=== PATIENT | male | born 1935 | race Caucasian/White ===

== ENCOUNTER 2020-02-14 12:48 | Inpatient (IN) | payer MEDICARE ==
[2020-02-14] MEDS ORDERED: SODIUM CHLORIDE 0.9% 500 ML 500 ML IV STA (13:33)
[2020-02-14 14:00] LABS: Basophils # (A) 0.1 k/uL (0-0.2); Basophils % (A) 1 %; Eosinophils # (A) 0.2 k/uL (0-0.7); Eosinophils % (A) 3 %; HCT 44.7 % (39.0-53.0); HGB 14.6 gm/dL (13.0-17.5); Lymphocytes # (A) 2.5 k/uL (1.0-4.8); Lymphocytes % (A) 26 %; MCH 27.9 pg (25.0-35.0); MCHC 32.6 g/dL (31.0-37.0); MCV 85.6 fL (80.0-100.0); Mean Platelet Volume 7.9; Monocytes # (A) 0.6 k/uL (0-1.0); Monocytes % (A) 6 %; Neutrophils # (A) 5.9 k/uL (1.3-7.7); Neutrophils % (A) 62 %; Platelet Count 213 k/uL (150-450); RBC 5.23 m/uL (4.30-5.90); RDW 14.1 % (11.5-15.5); WBC 9.6 k/uL (3.8-10.6)
[2020-02-14 14:08] LABS: Albumin 4.2 g/dL (3.5-5.0); Calcium 9.2 mg/dL (8.4-10.2); Potassium 4.9 mmol/L (3.5-5.1); Total Bilirubin 0.7 mg/dL (0.2-1.3); Total Protein 7.1 g/dL (6.3-8.2)
[2020-02-14 14:09] LABS: Partial Thromboplastin Time 23.5 sec (22.0-30.0); Prothrombin Time 10.2 sec (9.0-12.0)
--- NOTE | 2020-02-14 14:09 | ED ---
General Adult HPI - General Source: patient, RN notes reviewed, old records reviewed Mode of arrival: wheelchair Limitations: physical limitation <Usman Lange - Last Filed: 02/14/20 15:03> <Madonna Senior - Last Filed: 02/15/20 15:25> - General Chief complaint: Neuro Symptoms/Deficit Stated complaint: sent by pcp Time Seen by Provider: 02/14/20 13:00 - History of Present Illness Initial comments: This is an 84-year-old male who presents emergency Department stating since Friday he's had some right-sided coordination problems with both his arm and leg. Patient also states he's had slurred speech since then. Patient states he was working outside in the heat and thought maybe it was secondary to that but since his symptoms persisted all day Friday and today he decided to come in and be evaluated. Patient denies any headache patient denies lightheadedness or dizziness. Patient denies any blurred vision. Patient denies noting any facial drooping. Patient denies any recent fever chills or cough per patient denies any chest pain patient denies difficulty breathing shortness breath per patient denies any abdominal pain patient denies nausea vomiting diarrhea. Patient states he has had some difficulty walking because of the cord patient problems of his arm and leg. (Usman Lange) - Related Data Home Medications Medication Instructions Recorded Confirmed Atorvastatin Calcium [Lipitor] 40 mg PO HS 02/14/20 02/14/20 Glimepiride [Amaryl] 1 mg PO BID 02/14/20 02/14/20 Levothyroxine Sodium [Synthroid] 50 mcg PO QAM 02/14/20 02/14/20 Lisinopril [Zestril] 5 mg PO DAILY 02/14/20 02/14/20 Tamsulosin HCl [Flomax] 0.4 mg PO DAILY 02/14/20 02/14/20 Timolol 0.5% Ophth Gel Forming 1 drop BOTH EYES QAM 02/14/20 02/14/20 [Timoptic-Xe 0.5% Gel Form] amLODIPine [Norvasc] 5 mg PO DAILY 02/14/20 02/14/20 Previous Rx's Medication Instructions Recorded Aspirin 325 mg PO DAILY #30 tab 02/15/20 Allergies Allergy/AdvReac Type Severity Reaction Status Date / Time No Known Allergies Allergy Verified 02/14/20 16:58 Review of Systems ROS Other: All systems not noted in ROS Statement are negative. <Usman Lange - Last Filed: 02/14/20 15:03> ROS Other: All systems not noted in ROS Statement are negative. <Madonna Senior - Last Filed: 02/15/20 15:25> ROS Statement: Those systems with pertinent positive or pertinent negative responses have been documented in the HPI. Past Medical History Past Medical History: Diabetes Mellitus, Hyperlipidemia, Hypertension, Prostate Disorder, Thyroid Disorder Additional Past Medical History / Comment(s): glaucoma History of Any Multi-Drug Resistant Organisms: None Reported Past Surgical History: Orthopedic Surgery Additional Past Surgical History / Comment(s): carotidendarectomy, rt knee Past Psychological History: No Psychological Hx Reported Smoking Status: Former smoker Past Alcohol Use History: None Reported Past Drug Use History: None Reported <Usman Lange - Last Filed: 02/14/20 15:03> General Exam Limitations: physical limitation <Usman Lange - Last Filed: 02/14/20 15:03> - General Exam Comments Initial Comments: GENERAL: Patient is well-developed and well-nourished. Patient is nontoxic and well- hydrated and is in no acute distress. ENT: Neck is soft and supple. No significant lymphadenopathy is noted. Oropharynx is clear. Moist mucous membranes. Neck has full range of motion without eliciting any pain. EYES: The sclera were anicteric and conjunctiva were pink and moist. Extraocular movements were intact and pupils were equal round and reactive to light. Eyelids were unremarkable. PULMONARY: Unlabored respirations. Good breath sounds bilaterally. No audible rales rhon chi or wheezing was noted. CARDIOVASCULAR: There is a regular rate and rhythm without any murmurs gallops or rubs. ABDOMEN: Soft and nontender with normal bowel sounds. No palpable organomegaly was noted. There is no palpable pulsatile mass. SKIN: Skin is clear with no lesions or rashes and otherwise unremarkable. NEUROLOGIC: Patient is alert and oriented x3. Cranial nerves II through XII are grossly intact. Motor and sensory are also intact. Normal speech, volume and content. Symmetrical smile. Finger to nose testing was done and patient is slightly off with his right hand when compared to left. Patient also did heel to storey testing and they right side more difficult and was definitely off when compared to the left. MUSCULOSKELETAL: Normal extremities with adequate strength and full range of motion. No lower extremity swelling or edema. No calf tenderness. LYMPHATICS: No significant lymphadenopathy is noted PSYCHIATRIC: Normal psychiatric evaluation. (Usman Lange) Course Vital Signs 02/14/20 02/14/20 02/14/20 13:04 15:00 16:00 Temperature 98.2 F Pulse Rate 53 L 61 56 L Respiratory 18 16 Rate Blood Pressure 151/71 165/93 169/83 O2 Sat by Pulse 97 93 L 100 Oximetry 02/14/20 16:58 Temperature Pulse Rate 62 Respiratory 16 Rate Blood Pressure 165/84 O2 Sat by Pulse 100 Oximetry Medical Decision Making - Lab Data Result diagrams: 02/14/20 13:51 02/14/20 13:51 <Usman Lange - Last Filed: 02/14/20 15:03> - Lab Data Result diagrams: 02/14/20 13:51 02/14/20 13:51 <Madonna Senior - Last Filed: 02/15/20 15:25> - Medical Decision Making EKG shows sinus bradycardia 52 bpm MO interval is 170 QRS 104 QT interval is 440 QTC is 449. Patient's EKG shows no ST segment elevation or depression Dr. Wilcox be taking over the care of this patient at 3 PM (Usman Lange) I took over the patient's care at shift change. I did review his laboratory studies. CT of the patient's brain demonstrates mild generalized atrophy and m oderate chronic small vessel ischemic disease. 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 No acute intracranial abnormality seen. CT angiography of the patient's head demonstrates moderate atherosclerotic stenosis at the origin of the dominant left vertebral artery. Bilateral proximal ICA stents patent. Bovine configuration aortic arch. Nondominant right vertebral artery appears to terminate as a PICA branch. Persistent origin right MERCERIZING RANGE FEEDER. Hypoplastic A1 segment right GERALDINE. Moderate approaching 70% atherosclerotic stenosis involving clinoid segment of the left ICA. I discussed results with the patient and his family at bedside. I did recommend hospital admission for neurology evaluation for which the patient is family did agree. Patient will be admitted to [facility]. Discussed case with Dr. Porter who accepted admission. (Madonna Senior - Lab Data Lab Results 02/14/20 02/14/20 02/14/20 Range/Units 13:51 13:51 13:51 WBC 9.6 (3.8-10.6) k/uL RBC 5.23 (4.30-5.90) m/uL Hgb 14.6 (13.0-17.5) gm/dL Hct 44.7 (39.0-53.0) % MCV 85.6 (80.0-100.0) fL MCH 27.9 (25.0-35.0) pg MCHC 32.6 (31.0-37.0) g/dL RDW 14.1 (11.5-15.5) % Plt Count 213 (150-450) k/uL Neutrophils % 62 % Lymphocytes % 26 % Monocytes % 6 % Eosinophils % 3 % Basophils % 1 % Neutrophils # 5.9 (1.3-7.7) k/uL Lymphocytes # 2.5 (1.0-4.8) k/uL Monocytes # 0.6 (0-1.0) k/uL Eosinophils # 0.2 (0-0.7) k/uL Basophils # 0.1 (0-0.2) k/uL PT 10.2 (9.0-12.0) sec INR 1.0 (<1.2) APTT 23.5 (22.0-30.0) sec Sodium 135 L (137-145) mmol/L Potassium 4.9 (3.5-5.1) mmol/L Chloride 105 (98-107) mmol/L Carbon Dioxide 23 (22-30) mmol/L Anion Gap 7 mmol/L BUN 18 (9-20) mg/dL Creatinine 1.57 H (0.66-1.25) mg/dL Est GFR (CKD-EPI)AfAm 46 (>60 ml/min/1.73 sqM) Est GFR (CKD-EPI)NonAf 40 (>60 ml/min/1.73 sqM) Glucose 207 H (74-99) mg/dL Calcium 9.2 (8.4-10.2) mg/dL Total Bilirubin 0.7 (0.2-1.3) mg/dL AST 23 (17-59) U/L ALT 20 (4-49) U/L Alkaline Phosphatase 88 (38-126) U/L Troponin I (0.000-0.034) ng/mL Total Protein 7.1 (6.3-8.2) g/dL Albumin 4.2 (3.5-5.0) g/dL 02/14/20 Range/Units 13:51 WBC (3.8-10.6) k/uL RBC (4.30-5.90) m/uL Hgb (13.0-17.5) gm/dL Hct (39.0-53.0) % MCV (80.0-100.0) fL MCH (25.0-35.0) pg MCHC (31.0-37.0) g/dL RDW (11.5-15.5) % Plt Count (150-450) k/uL Neutrophils % % Lymphocytes % % Monocytes % % Eosinophils % % Basophils % % Neutrophils # (1.3-7.7) k/uL Lymphocytes # (1.0-4.8) k/uL Monocytes # (0-1.0) k/uL Eosinophils # (0-0.7) k/uL Basophils # (0-0.2) k/uL PT (9.0-12.0) sec INR (<1.2) APTT (22.0-30.0) sec Sodium (137-145) mmol/L Potassium (3.5-5.1) mmol/L Chloride (98-107) mmol/L Carbon Dioxide (22-30) mmol/L Anion Gap mmol/L BUN (9-20) mg/dL Creatinine (0.66-1.25) mg/dL Est GFR (CKD-EPI)AfAm (>60 ml/min/1.73 sqM) Est GFR (CKD-EPI)NonAf (>60 ml/min/1.73 sqM) Glucose (74-99) mg/dL Calcium (8.4-10.2) mg/dL Total Bilirubin (0.2-1.3) mg/dL AST (17-59) U/L ALT (4-49) U/L Alkaline Phosphatase (38-126) U/L Troponin I <0.012 (0.000-0.034) ng/mL Total Protein (6.3-8.2) g/dL Albumin (3.5-5.0) g/dL Disposition <Usman Lange - Last Filed: 02/14/20 15:03> Is patient prescribed a controlled substance at d/c from ED?: No Decision to Admit Reason: Admit from EC Decision Date: 02/14/20 Decision Time: 16:41 <Madonna Senior - Last Filed: 02/15/20 15:25> Clinical Impression: Cerebrovascular accident (CVA) Disposition: ADMITTED IP TO THIS HOSP Condition: Stable
--- NOTE | 2020-02-14 14:34 | XR ---
EXAMINATION TYPE: XR chest 2V DATE OF EXAM: 02/14/2020 COMPARISON: Prior chest x-ray is unavailable HISTORY: Altered mental status TECHNIQUE: Frontal and lateral views of the chest are obtained. FINDINGS: There is no focal air space opacity, pleural effusion, or pneumothorax seen. The cardiac silhouette size is within normal limits. The osseous structures are intact. The aorta is dense. IMPRESSION: No acute cardiopulmonary process.
--- NOTE | 2020-02-14 14:58 | CT ---
EXAMINATION TYPE: CT brain wo con for TPA DATE OF EXAM: 02/14/2020 COMPARISON: None HISTORY: 84-year-old male Right side weakness TECHNIQUE: Examination was done in axial plane without intravenous contrast. Coronal and sagittal r econstructions performed. CT DLP: 1187.8 mGycm Automated exposure control for dose reduction was used. FINDINGS: There is no evidence of acute intracranial hemorrhage, acute ischemic changes, mass, mass-effect, or extra-axial fluid collection. There is no effacement of cerebral sulci or basal subarachnoid cister ns. There is no hydrocephalus. There is no midline shift. Matthews-white matter distinction is preserv ed. Atherosclerotic calcifications in the carotid siphons. Mild to moderate generalized supratentorial vo lume loss. Old basal ganglionic lacunar infarcts on the right and also involving the left robledo radiata/deep wh ite matter on the left. Small air-fluid level right maxillary sinus. Mastoid air cells are pneumatized. Moderate to severe mu cosal thickening throughout the ethmoid air cells. IMPRESSION: 1. Mild generalized atrophy and moderate fatty change of chronic small vessel ischemic disease. Old r ight-sided basal ganglionic lacunar infarcts and deep white matter infarct left robledo radiata. 2. No acute intracranial abnormality seen. Follow-up CT or MRI if symptoms persist. 3. Moderate to severe chronic ethmoid sinus disease.
--- NOTE | 2020-02-14 15:57 | CT ---
EXAMINATION TYPE: CT angio head neck DATE OF EXAM: 02/14/2020 COMPARISON: Correlation brain same day HISTORY: 84-year-old male Right sided weakness TECHNIQUE: Contiguous axial scanning of the head and neck performed with IV Contrast, patient injecte d with 65 mL of Isovue 370. Coronal/sagittal MIP reconstructions performed. 3-D reconstructions gener ated on a dedicated workstation. CT DLP: 647.5 mGycm Automated exposure control for dose reduction was used. FINDINGS: NECK: Mild to moderate atherosclerotic arch calcifications. Bovine configuration to the aortic arch. Moderate atherosclerotic narrowing at the origin of the dominant left vertebral artery. The vertebral arteries are otherwise patent throughout the course. Right common carotid artery is patent. A proximal ICA stent is present on the right with patent ICA. Left common carotid artery is patent. Proximal left ICA stent is present and appears patent. HEAD: The nondominant right vertebral artery appears to terminate as a PICA branch. Left vertebral artery and basilar artery appear patent. Persistent origin right posterior cerebral artery.. Moderate atherosclerotic narrowing of greater than 50% of the clinoid segment left internal carotid a rtery. Mild atherosclerotic narrowing within the right carotid siphon. Hypoplastic A1 segment right anterior cerebral artery. The anterior circulation is otherwise patent. No aneurysmal changes identified. IMPRESSION: NECK: 1. Moderate atherosclerotic stenosis at the origin of the dominant left vertebral artery. 2. Bilateral proximal ICA stents appear patent. No hemodynamically significant ICA stenosis identifie d. 3. Bovine configuration to the aortic arch. HEAD: 4. The nondominant right vertebral artery appears to terminate as a PICA branch. 5. Persistent origin right GROUP TESTER. 6. Hypoplastic A1 segment right GERALDINE. 7. Moderate, approaching 70%, atherosclerotic stenosis involving the clinoid segment of the left ICA. Otherwise, mild atherosclerotic narrowing is present within the bilateral carotid siphons.
[2020-02-14] MEDS ORDERED: ASPIRIN 325 MG TAB PO STA (16:47)
[2020-02-14] MEDS: ATORVASTATIN 40 MG TAB PO SCH (17:36)
[2020-02-14 18:07] LABS: Glucose,Whole Blood 130 mg/dL (75-99)
[2020-02-14 20:16] LABS: Glucose,Whole Blood 220 mg/dL (75-99)
[2020-02-14] MEDS: GLIMEPIRIDE 1 MG TAB PO SCH (20:55)
[2020-02-15] MEDS: LEVOTHYROXINE 50 MCG TAB PO SCH (06:25)
[2020-02-15 06:51] LABS: Cholesterol 139 mg/dL (<200); HDL Cholesterol 29 mg/dL (40-60); LDL Cholesterol,Calculated 64 mg/dL (0-99); Triglycerides 232 mg/dL (<150)
[2020-02-15] MEDS ORDERED: amLODIPine 5 MG TAB PO SCH (09:00)
[2020-02-15] MEDS: GLIMEPIRIDE 1 MG TAB PO SCH ×2 (09:33→20:48)
[2020-02-15] MEDS: ASPIRIN 325 MG TAB PO SCH (09:33)
[2020-02-15] MEDS: TAMSULOSIN 0.4 MG CAP.ER.24H PO SCH (09:33)
[2020-02-15] MEDS: ATORVASTATIN 40 MG TAB PO SCH (09:34)
[2020-02-15] MEDS: TIMOLOL 0.5% OPHTH DROPS 5 ML BTL BOTH EYES SCH ×2 (09:35→20:48)
[2020-02-15] MEDS ORDERED: lisinopriL 5 MG TAB PO SCH (10:15)
[2020-02-15 12:09] LABS: Glucose,Whole Blood 217 mg/dL (75-99)
--- NOTE | 2020-02-15 12:57 | P.HPIM ---
History of Present Illness 83-year-old pleasant male given was department with complaints of weakness in the right arm and leg patient denied any significant speech abnormality facial droop patient denied any headache. Patient's EKG showed mild sinus bradycardia patient denied any fever chills nausea vomiting. Patient denied any tingling and numbness anywhere in the body. Patient the had a CT of the brain which did not show any acute stroke patient's symptoms has been going on since Friday. But patient has old a right-sided basal ganglionic lacunar infarcts and deep white matter infarcts were coronary radiate patient appears to have had old strokes. CT angios the head and neck did not show any significant occlusive disease patient will undergo MRI and an echocardiogram. Patient was already evaluated PT and OT they're not recommending any subacute rehabilitation. Speech therapy is evaluating the patient and neurology will evaluate the pat ient. Patient LDL is 64. Patient is a statin at home patient doesn't take any antiplatelet therapy at home patient was started on treatment for milligrams of aspirin patient probably will be discharged on 325 mg of aspirin. Review of Systems REVIEW OF SYSTEMS: CONSTITUTIONAL: No fever, no malaise, no fatigue. HEENT: No recent visual problems or hearing problems. Denied any sore throat. CARDIOVASCULAR: No chest pain, orthopnea, PND, no palpitations, no syncope. PULMONARY: No shortness of breath, no cough, no hemoptysis. GASTROINTESTINAL: No diarrhea, no nausea, no vomiting, no abdominal pain. NEUROLOGICAL: No headaches. HEMATOLOGICAL: Denies any bleeding or petechiae. GENITOURINARY: Denies any burning micturition, frequency, or urgency. MUSCULOSKELETAL/RHEUMATOLOGICAL: Denies any joint pain, swelling, or any muscle pain. ENDOCRINE: Denies any polyuria or polydipsia. The rest of the 14-point review of systems is negative. Past Medical History Past Medical History: Diabetes Mellitus, Hyperlipidemia, Hypertension, Prostate Disorder, Thyroid Disorder Additional Past Medical History / Comment(s): glaucoma History of Any Multi-Drug Resistant Organisms: None Reported Past Surgical History: Orthopedic Surgery Additional Past Surgical History / Comment(s): bilateral carotidendarectomy, rt knee Past Psychological History: No Psychological Hx Reported Smoking Status: Former smoker Past Alcohol Use History: None Reported Past Drug Use History: None Reported Medications and Allergies Home Medications Medication Instructions Recorded Confirmed Type Atorvastatin Calcium [Lipitor] 40 mg PO HS 02/14/20 02/14/20 History Glimepiride [Amaryl] 1 mg PO BID 02/14/20 02/14/20 History Levothyroxine Sodium [Synthroid] 50 mcg PO QAM 02/14/20 02/14/20 History Lisinopril [Zestril] 5 mg PO DAILY 02/14/20 02/14/20 History Tamsulosin HCl [Flomax] 0.4 mg PO DAILY 02/14/20 02/14/20 History Timolol 0.5% Ophth Gel Forming 1 drop BOTH EYES QAM 02/14/20 02/14/20 History [Timoptic-Xe 0.5% Gel Form] amLODIPine [Norvasc] 5 mg PO DAILY 02/14/20 02/14/20 History Aspirin 325 mg PO DAILY #30 tab 02/15/20 Rx Allergies Allergy/AdvReac Type Severity Reaction Status Date / Time No Known Allergies Allergy Verified 02/14/20 16:58 Physical Exam Vitals: Vital Signs Temp Pulse Pulse Resp BP BP Pulse Ox 02/15/20 08:00 97.8 F 50 L 18 187/85 97 02/15/20 04:00 97.9 F 95 17 136/63 97 02/15/20 00:00 97.7 F 55 L 16 135/75 96 02/14/20 20:00 98.1 F 60 19 162/76 95 02/14/20 18:02 97.8 F 56 L 16 177/76 96 02/14/20 16:58 62 16 165/84 100 02/14/20 16:00 56 L 169/83 100 02/14/20 15:00 61 16 165/93 93 L 02/14/20 13:04 98.2 F 53 L 18 151/71 97 Intake and Output 02/14/20 02/15/20 02/15/20 22:59 06:59 14:59 Intake Total 0 120 Balance 0 120 Intake: Oral 0 120 Blood Product 0 Other: Voiding Method Toilet Toilet Toilet # Voids 1 2 0 Weight 99.79 kg 98 kg PHYSICAL EXAMINATION: GENERAL: The patient is alert and oriented x3, not in any acute distress. Well developed, well nourished. HEENT: Pupils are round and equally reacting to light. EOMI. No scleral icterus. No conjunctival pallor. Normocephalic, atraumatic. No pharyngeal erythema. No thyromegaly. CARDIOVASCULAR: S1 and S2 present. No murmurs, rubs, or gallops. PULMONARY: Chest is clear to auscultation, no wheezing or crackles. ABDOMEN: Soft, nontender, nondistended, normoactive bowel sounds. No palpable organomegaly. MUSCULOSKELETAL: No joint swelling or deformity. EXTREMITIES: No cyanosis, clubbing, or pedal edema. NEUROLOGICAL: Patient has good strength in all 4 extremities about 5/5 is mild drift in the right arm SKIN: No rashes. Results CBC & Chem 7: 02/14/20 13:51 02/14/20 13:51 Labs: Abnormal Lab Results - Last 24 Hours (Table) 02/14/20 02/14/20 02/14/20 Range/Units 13:51 18:05 20:06 Sodium 135 L (137-145) mmol/L Creatinine 1.57 H (0.66-1.25) mg/dL Glucose 207 H (74-99) mg/dL POC Glucose (mg/dL) 130 H 220 H (75-99) mg/dL Triglycerides (<150) mg/dL HDL Cholesterol (40-60) mg/dL 02/15/20 02/15/20 Range/Units 05:35 11:53 Sodium (137-145) mmol/L Creatinine (0.66-1.25) mg/dL Glucose (74-99) mg/dL POC Glucose (mg/dL) 217 H (75-99) mg/dL Triglycerides 232 H (<150) mg/dL HDL Cholesterol 29 L (40-60) mg/dL Thrombosis Risk Factor Assmnt - Choose All That Apply Any of the Below Risk Factors Present?: No Other Risk Factors: No Each Risk Factor Represents 3 Points: Age 75 years or older Other congenital or acquired thrombophilia - If yes, enter type in comment: Yes Each Risk Factor Represents 5 Points: Stroke (< 1 month) Thrombosis Risk Factor Assessment Total Risk Factor Score: 8 Thrombosis Risk Factor Assessment Level: High Risk Assessment and Plan Plan: -Possible cerebrovascular accident involving the left side of the brain middle cerebral artery her treating. Patient was started on a statin further workup as mentioned above. Patient probably will be discharged on 325 of Aspirin patient already sticks statin at home. 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
--- NOTE | 2020-02-15 12:57 | P.DS ---
Providers Date of admission: 02/14/20 16:56 Attending physician: Tyler Orellana Consults: 02/14/20 16:43 Consult Physician Urgent Consulting Provider: Elie Brandon Consult Reason/Comments: acute ataxia, suspected CVA Do you want consulting provider notified?: Yes Primary care physician: Deondre Liu Hospital Course: Please refer to my HPI for further details Patient Condition at Discharge: Stable Plan - Discharge Summary Discharge Rx Participant: No New Discharge Prescriptions: New Aspirin 325 mg PO DAILY #30 tab Continue amLODIPine [Norvasc] 5 mg PO DAILY Tamsulosin HCl [Flomax] 0.4 mg PO DAILY Lisinopril [Zestril] 5 mg PO DAILY Levothyroxine Sodium [Synthroid] 50 mcg PO QAM Glimepiride [Amaryl] 1 mg PO BID Atorvastatin Calcium [Lipitor] 40 mg PO HS Timolol 0.5% Ophth Gel Forming [Timoptic-Xe 0.5% Gel Form] 1 drop BOTH EYES QAM Discharge Medication List Atorvastatin Calcium [Lipitor] 40 mg PO HS 02/14/20 [History] Glimepiride [Amaryl] 1 mg PO BID 02/14/20 [History] Levothyroxine Sodium [Synthroid] 50 mcg PO QAM 02/14/20 [History] Lisinopril [Zestril] 5 mg PO DAILY 02/14/20 [History] Tamsulosin HCl [Flomax] 0.4 mg PO DAILY 02/14/20 [History] Timolol 0.5% Ophth Gel Forming [Timoptic-Xe 0.5% Gel Form] 1 drop BOTH EYES QAM 02/14/20 [History] amLODIPine [Norvasc] 5 mg PO DAILY 02/14/20 [History] Aspirin 325 mg PO DAILY #30 tab 02/15/20 [Rx] Follow up Appointment(s)/Referral(s): Deondre Liu MD [Primary Care Provider] - 3 Days
--- NOTE | 2020-02-15 15:03 | P.CNNES ---
History of Present Illness Consult date: 02/15/20 Requesting physician: Madonna Senior Reason for Consult: Acute ataxia, suspected CVA History of Present Illness: Patient is a 84-year-old male, who came to the hospital for possible stroke. Patient states that over the weekend on Friday and Friday he worked in the yard. He became exhausted. Friday morning, he woke up and noticed some right- sided weakness, slurred speech and trouble with walking. He had a right facial droop. He stayed home. As symptoms persisted, he decided to come to the ER, and arrived yesterday at 1 PM (> 24 hours after onset of symptoms). Patient's blood pressure on arrival was 151/71, pulse rate 53, temperature 98.2. Patient underwent CT head showed mild generalized atrophy and moderate fatty change of chronic small vessel ischemic disease. Old right sided basal ganglionic lacunar infarcts and deep white matter infarct left robledo radiate up. No acute intracranial process. Moderate to severe chronic ethmoid sinus disease. CTA of head showed nondominant right vertebral artery appears to terminate as a PICA branch. Persistent origin right ICA. Hypoplastic A1 segment right GERALDINE. Moderate approaching 70% atherosclerotic stenosis involving the clinoid segment of the left ICA. Otherwise mild atherosclerotic narrowing is present within the bilateral carotid siphons. CTA of the neck showed moderate atherosclerotic stenosis at the origin of dominant left vertebral artery. Bilateral proximal ICA stents appear patent. No hemodynamically significant ICA stenosis identified. Bovine configuration to the aortic arch. EKG shows sinus bradycardia. Chest x-ray showed no acute cardiopulmonary process. Patient's blood test shows normal CBC, PT/PTT. Sodium 135, potassium is normal. BUN 18, creatinine 1.57. Hemoglobin A1c 10.7. Hepatic panel normal. Total cholesterol is 139, LDL 64, HDL 29 and triglycerides 232. Patient has history of diabetes and hypertension for a few years. He has hyperlipidemia. He has smoked 1-1/2 pack per day for 40 years, quit 20-25 years ago. No previous history of strokes. At home he was not taking any antiplatelet medication. He has been started on aspirin 325 mg daily. Review of Systems As above in detail. All other review of systems unremarkable. Denies headache and double vision loss of vision. Denies hoarseness. Complains of slurred speech. Gait problem. Patient does not use any device at baseline. He has been using cane since the symptoms started. Past Medical History Past Medical History: Diabetes Mellitus, Hyperlipidemia, Hypertension, Prostate Disorder, Thyroid Disorder Additional Past Medical History / Comment(s): glaucoma History of Any Multi-Drug Resistant Organisms: None Reported Past Surgical History: Orthopedic Surgery Additional Past Surgical History / Comment(s): bilateral carotidendarectomy, rt knee Past Psychological History: No Psychological Hx Reported Smoking Status: Former smoker Past Alcohol Use History: None Reported Past Drug Use History: None Reported Medications and Allergies Home Medications Medication Instructions Recorded Confirmed Type Atorvastatin Calcium [Lipitor] 40 mg PO HS 02/14/20 02/14/20 History Glimepiride [Amaryl] 1 mg PO BID 02/14/20 02/14/20 History Levothyroxine Sodium [Synthroid] 50 mcg PO QAM 02/14/20 02/14/20 History Lisinopril [Zestril] 5 mg PO DAILY 02/14/20 02/14/20 History Tamsulosin HCl [Flomax] 0.4 mg PO DAILY 02/14/20 02/14/20 History Timolol 0.5% Ophth Gel Forming 1 drop BOTH EYES QAM 02/14/20 02/14/20 History [Timoptic-Xe 0.5% Gel Form] amLODIPine [Norvasc] 5 mg PO DAILY 02/14/20 02/14/20 History Aspirin 325 mg PO DAILY #30 tab 02/15/20 Rx Allergies Allergy/AdvReac Type Severity Reaction Status Date / Time No Known Allergies Allergy Verified 02/14/20 16:58 Physical Examination - Vital Signs Vital Signs: Vital Signs Temp Pulse Pulse Resp BP BP Pulse Ox 02/15/20 08:00 97.8 F 50 L 18 187/85 97 02/15/20 04:00 97.9 F 95 17 136/63 97 02/15/20 00:00 97.7 F 55 L 16 135/75 96 02/14/20 20:00 98.1 F 60 19 162/76 95 02/14/20 18:02 97.8 F 56 L 16 177/76 96 02/14/20 16:58 62 16 165/84 100 02/14/20 16:00 56 L 169/83 100 02/14/20 15:00 61 16 165/93 93 L 02/14/20 13:04 98.2 F 53 L 18 151/71 97 Intake and Output 02/14/20 02/15/20 02/15/20 22:59 06:59 14:59 Intake Total 0 120 Balance 0 120 Intake: Oral 0 120 Blood Product 0 Other: Voiding Method Toilet Toilet Toilet # Voids 1 2 0 Weight 99.79 kg 98 kg On examination patient is an elderly male, in no acute distress. Patient is alert and awake fully oriented. Speech is mildly dysarthric but no aphasia. Attention and concentration fund of knowledge is adequate. On cranial exam showed pupils are round and reactive to light, visual markham are full on confrontation. Extraocular muscles are intact with no nystagmus. Face has mild right-sided asymmetry with decreased right nasolabial fold, tongue protrudes the midline. Palatal elevation and sensation normal. Hearing and shoulder shrug normal. On muscle strength testing patient has right pronator drift. The strength is normal in arms and legs except right toe extension which is 5-as compared to the left which is normal. Reflexes are 1+ and patient has upgoing plantar on the right whereas down on the left. Sensory touch is equal with no neglect. Patient has ataxia for [id number] and [id number] testing on the right side. Tone and bulk of muscles normal. Gait deferred. No obvious bruit, S1 and S2 audible. No peripheral edema. Abdomen soft nontender, chest clear. 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 Mechanism likely lacunar from small vessel disease. * Atherosclerotic cerebrovascular disease. CTA showed approaching 70% atherosclerotic stenosis involving the clinoid segment of the left ICA. * Diabetes, poorly controlled, hemoglobin A1c 10.7, in July 2019. * Hypertension * Hyperlipidemia * X tobacco use. Plan: * Patient was not taking any antiplatelet medication. * Patient to be started on aspirin 325 mg daily. * Await MRI of the brain and 2-D echo * Permissible hypertension for 24 hours. * Optimize control of diabetes. Check hemoglobin A1c. Target hemoglobin A1c <7.0 * Continue statins. Patient on Lipitor 40 mg daily. * Patient may need PT OT speech therapy.
[2020-02-15 16:57] LABS: Glucose,Whole Blood 122 mg/dL (75-99)
[2020-02-15 19:53] LABS: Glucose,Whole Blood 121 mg/dL (75-99)
[2020-02-15 21:00] LABS: Hemoglobin A1C 10.2 % (4.0-6.0)
[2020-02-16 06:12] LABS: Glucose,Whole Blood 137 mg/dL (75-99)
[2020-02-16] MEDS: LEVOTHYROXINE 50 MCG TAB PO SCH (06:15)
[2020-02-16 06:46] LABS: HCT 46.3 % (39.0-53.0); HGB 14.9 gm/dL (13.0-17.5); MCH 28.3 pg (25.0-35.0); MCHC 32.1 g/dL (31.0-37.0); MCV 88.2 fL (80.0-100.0); Platelet Count 226 k/uL (150-450); RBC 5.25 m/uL (4.30-5.90); WBC 10.4 k/uL (3.8-10.6)
[2020-02-16 06:54] LABS: Calcium 8.7 mg/dL (8.4-10.2); Potassium 5.2 mmol/L (3.5-5.1)
[2020-02-16 08:50] VITALS: BP 177/79; PULSE 56; RESP 18; TEMP 98.1
[2020-02-16] MEDS: GLIMEPIRIDE 1 MG TAB PO SCH (08:51)
[2020-02-16] MEDS: TAMSULOSIN 0.4 MG CAP.ER.24H PO SCH (08:51)
[2020-02-16] MEDS: ASPIRIN 325 MG TAB PO SCH (08:51)
[2020-02-16] MEDS: ATORVASTATIN 40 MG TAB PO SCH (08:51)
[2020-02-16] MEDS: TIMOLOL 0.5% OPHTH DROPS 5 ML BTL BOTH EYES SCH (08:51)
[2020-02-16] MEDS ORDERED: lisinopriL 10 MG TAB PO SCH (09:00)
--- NOTE | 2020-02-16 10:00 | ECHOF ---
Referral Reason:CVA MEASUREMENTS -------- HEIGHT: 180.3 cm WEIGHT: 98.0 kg BP: RVIDd: 2.3 cm (< 3.3) IVSd: 1.2 cm (0.6 - 1.1) LVIDd: 4.4 cm (3.9 - 5.3) LVPWd: 1.3 cm (0.6 - 1.1) IVSs: 2.2 cm LVIDs: 2.0 cm LVPWs: 2.2 cm Ao Diam: 3.7 cm (2.0 - 3.7) AV Cusp: 1.0 cm (1.5 - 2.6) LA Diam: 2.8 cm (2.7 - 3.8) MV EXCURSION: 15.965 mm (> 18.000) MV EF SLOPE: 66 mm/s (70 - 150) EPSS: 0.6 cm MV E Aleks: 0.67 m/s MV DecT: 284 ms MV A Aleks: 0.90 m/s MV E/A Ratio: 0.74 AV maxP.15 mmHg AV meanP.20 mmHg RAP: 5.00 mmHg RVSP: 10.82 mmHg FINDINGS -------- Sinus rhythm. This was a technically good study. The left ventricular size is normal. There is mild concentric left ventricular hypertrophy. Overa ll left ventricular systolic function is normal with, an EF between 55 - 60 %. The right ventricle is normal in size. The left atrial size is normal. The right atrial size is normal. Interatrial and interventricular septum intact. Aortic valve is trileaflet and is mildly thickened. There is mild aortic stenosis present. Peak/m miguelito gradient across the Aortic Valve is 23.15mmHg / 14.20mmHg. The mitral valve is normal. There is trace mitral regurgitation. The tricuspid valve appears structurally normal. Trace tricuspid regurgitation present. Right solange tricular systolic pressure is normal at < 35 mmHg. There is no pulmonic regurgitation present. The aortic root size is normal. Normal inferior vena cava with normal inspiratory collapse consistent with estimated right atrial pre ssure of 5 mmHg. There is no pericardial effusion. CONCLUSIONS -------- 1. There is mild concentric left ventricular hypertrophy. 2. Overall left ventricular systolic function is normal with, an EF between 55 - 60 %. 3. Aortic valve is trileaflet and is mildly thickened. 4. There is mild aortic stenosis present. 5. Peak/mean gradient across the Aortic Valve is 23.15mmHg / 14.20mmHg. 6. There is trace mitral regurgitation. 7. Trace tricuspid regurgitation present. [employer]: Katherin Hernández RDCS
[2020-02-16 11:47] LABS: Glucose,Whole Blood 185 mg/dL (75-99)
[2020-02-16 11:51] VITALS: BMI 29.1
[2020-02-16] MEDS ORDERED: CLOPIDOGREL 75 MG TAB PO STA (13:59)
--- NOTE | 2020-02-16 14:42 | P.PN ---
Subjective Progress Note Date: 02/16/20 Patient states he is feeling better. Patient's daughter was also present today. His speech continues to be mild to moderately dysarthric. No new focal symptoms. Objective - Vital Signs Vital signs: Vital Signs Temp 98.1 F 02/16/20 08:00 Pulse 56 L 02/16/20 08:00 Resp 18 02/16/20 08:00 BP 177/79 02/16/20 08:00 Pulse Ox 96 02/16/20 08:00 Intake & Output 02/15/20 02/16/20 02/16/20 18:59 06:59 18:59 Intake Total 840 0 240 Output Total 300 Balance 540 0 240 Weight 97.5 kg 97.5 kg Intake: Oral 840 0 240 Output: Urine 300 Other: Voiding Method Toilet Toilet # Voids 1 1 1 - Exam On examination patient is alert and awake in no distress. His speech is mild to moderately dysarthric. No aphasia. On cranial examination pupils are round and reactive to light. Visual markham are full on confrontation. Extraocular muscles are intact. Patient has right facial asymmetry. Tongue protrudes the midline. Palatal elevation and sensation normal on muscle strength testing patient has right pronation but no drift. The strength is normal in arms and legs distally and proximally except for right hip flexion which is 5-as compared to the left. Sensory touch is equal. Patient has ataxia for [id number]-[id number] and etxh-uf-[id number] testing on the right side. Patient has been using walker to walk. Prior to this stroke, he was not using any assistive device. 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 Mechanism likely lacunar from small vessel disease. * Atherosclerotic cerebrovascular disease. CTA showed approaching 70% atherosclerotic stenosis involving the clinoid segment of the left ICA. * Diabetes, poorly controlled, hemoglobin A1c 10.7, in July 2019. * Hypertension * Hyperlipidemia * X tobacco use. Plan: * Patient was not taking any antiplatelet medication. * Patient to be started on aspirin 325 mg daily. I would suggest adding Plavix 75 mg to the regimen. * MRI of the brain was ordered, but could not be completed, as his stents could not be confirmed if they are compatible with MRI. He probably will need open MRI. * 2-D echo revealed mild concentric LVH. EF is 55-60%. Aortic valve is trileaflet and is mildly thickened. Mild aortic stenosis. Trace MR. * Hemoglobin A1c 10.2, consistent with poorly controlled diabetes. Optimize control of diabetes. Target hemoglobin A1c <7.0 * Lipid panel showed cholesterol 139, LDL 64, HDL 29 and triglycerides 232. Continue Lipitor 40 mg daily. * Patient to follow up with neurologist as outpatient. Patient will need PT OT an outpatient. * Neurologically clear, only if cleared by PT and OT.
== END 2020-02-16 14:32 | disposition home or self-care (01) | DRG 65 ==
LOC: EC 12:48 → 3SCARD 16:56 → UNDODISIN 02-16 13:05
PROVIDERS: ADMIT Hospitalist; ATTEND Hospitalist
DX: I63.232 Cerebral infarction due to unspecified occlusion or stenosis of left carotid arteries (principal); G81.91 Hemiplegia, unspecified affecting right dominant side; R47.81 Slurred speech; R29.810 Facial weakness; Z87.891 Personal history of nicotine dependence; I67.2 Cerebral atherosclerosis; E11.22 Type 2 diabetes mellitus with diabetic chronic kidney disease; E11.51 Type 2 diabetes mellitus with diabetic peripheral angiopathy without gangrene; E78.5 Hyperlipidemia, unspecified; E11.65 Type 2 diabetes mellitus with hyperglycemia; I12.9 Hypertensive chronic kidney disease with stage 1 through stage 4 chronic kidney disease, or unspecified chronic kidney disease; J32.2 Chronic ethmoidal sinusitis; N18.3 Chronic kidney disease, stage 3 (moderate); I08.0 Rheumatic disorders of both mitral and aortic valves; Z11.59 Encounter for screening for other viral diseases; Z79.82 Long term (current) use of aspirin; Z79.84 Long term (current) use of oral hypoglycemic drugs; Z79.890 Hormone replacement therapy; Z79.899 Other long term (current) drug therapy; Z86.73 Personal history of transient ischemic attack (TIA), and cerebral infarction without residual deficits; H40.9 Unspecified glaucoma; R26.2 Difficulty in walking, not elsewhere classified; Z66 Do not resuscitate; E07.9 Disorder of thyroid, unspecified; N42.9 Disorder of prostate, unspecified; R47.1 Dysarthria and anarthria
CPT/HCPCS: 36415; 70450; 70496; 70498; 71046; 80048; 80053; 80061; 83036; 84484; 85025; 85027; 85610; 85730; 93005; 93306; 99285

== ENCOUNTER → 2020-11-14 | Outpatient (CLI) | payer MEDICARE, BC ==
--- NOTE | 2020-11-14 10:35 | US ---
EXAMINATION TYPE: US duplex aorta DATE OF EXAM: 11/14/2020 COMPARISON: NONE CLINICAL HISTORY: 84-year-old male I71.4 abdominal aortic aneurysm, without rupture. TECHNIQUE: Multiple sonographic images of the abdominal aorta are obtained. FINDINGS: EXAM MEASUREMENTS: Abdominal Aorta: Proximal: 2.1 x 2.1 cm Mid: 2.4 x 2.3 cm Distal: 2.6 x 2.6 cm Bifurcation: LISBETH: 1.1 x 1.1 cm EVELYN: 1.1 x 1.0 cm IMPRESSION: Mild ectasia of the distal abdominal aorta at 2.6 cm. No AAA.
== END | disposition home or self-care (01) ==
LOC: RADUSWWP 09:37
PROVIDERS: ATTEND Family Medicine
DX: I77.811 Abdominal aortic ectasia (principal)
CPT/HCPCS: 93979

== ENCOUNTER → 2021-07-19 | Outpatient (CLI) | payer MEDICARE ==
--- NOTE | 2021-07-19 16:11 | US ---
EXAMINATION TYPE: US kidneys/renal and bladder DATE OF EXAM: 07/19/2021 COMPARISON: None CLINICAL HISTORY: 85-year-old male N18.4 CKD. TECHNIQUE: Multiple sonographic images of the kidneys and bladder are obtained. EXAM MEASUREMENTS: Right Kidney: 10.5 x 4.7 x 4.5 cm Left Kidney: 11.2 x 4.0 x 4.1 cm Right Kidney: No hydronephrosis. Left Kidney: Medial cyst measuring 1.3 x 1.2 x 1.4 cm. Lower pole cyst measuring 3.2 x 1.8 x 2.8 cm. No hydronephrosis. Bladder: Partial distention limits evaluation. There is some soft tissue impressing on the bladder ba se measuring up to 3.5 cm. Bilateral Jets seen: No IMPRESSION: 1. No hydronephrosis. 2. A couple benign left-sided renal cysts measuring up to 3.2 cm. 3. Some lobulated soft tissue impressing on to the bladder base may reflect BPH. Clinically correlate .
== END | disposition home or self-care (01) ==
LOC: RADUSWWP 13:06
PROVIDERS: ATTEND Internal Medicine
DX: N18.4 Chronic kidney disease, stage 4 (severe) (principal); N28.1 Cyst of kidney, acquired
CPT/HCPCS: 76770

== ENCOUNTER → 2023-03-05 | Outpatient (CLI) | payer MEDICARE ==
[2023-03-05 17:16] LABS: HCT 45.8 % (39.6-50.0); MCH 28.8 pg (27.0-32.0); MCHC 32.8 d/dL (32.0-37.0); MCV 88.1 FL (80.0-97.0); Mean Platelet Volume 10.1 FL (9.5-12.2); NRBC Per 100 WBC 0 X 10*3/uL (0.00-0.01); Platelet Count 250 X 10*3/uL (140-440); WBC 9.28 X 10*3/uL (4.50-10.00)
[2023-03-05 17:35] LABS: ALT 15 U/L (10-49); AST 18 U/L (14-35); Albumin 4.7 d/dL (3.8-4.9); Albumin/Globulin Ratio 1.96 Ratio (1.60-3.17); Alkaline Phosphatase 68 U/L (41-126); Bilirubin, Conjugated <0.20 mg/dL (0.20-0.40); Bilirubin,Unconjugated >0.20 mg/dL (0.20-1.00); Chloride 101 mmol/L (96-109); Chol/HDL Ratio 3.34 Ratio; Globulin 2.4 d/dL (1.6-3.3); LDL Cholesterol,Calculated 67.7 mg/dL (0.0-131.0); Potassium 5.6 mmol/L (3.5-5.5); Sodium 138 mmol/L (135-145); Total Bilirubin 0.4 mg/dL (0.3-1.2); Total Protein 7.1 d/dL (6.2-8.2)
[2023-03-05 19:57] LABS: INR 0.93 sec (0.93-1.11); Prothrombin Time 10.5 sec (9.9-11.9)
== END | disposition home or self-care (01) ==
LOC: LABWHC1 09:00
PROVIDERS: ATTEND Nurse Practitioner Family
DX: I73.9 Peripheral vascular disease, unspecified (principal)
CPT/HCPCS: 36415; 80051; 80061; 80076; 82565; 84520; 85027; 85610

== ENCOUNTER → 2023-03-20 | Outpatient (CLI) | payer MEDICARE ==
[2023-03-20 15:18] LABS: ALT 13 U/L (10-49); AST 18 U/L (14-35); Albumin 4.5 d/dL (3.8-4.9); Albumin/Globulin Ratio 2.05 Ratio (1.60-3.17); Alkaline Phosphatase 66 U/L (41-126); BUN/Creat Ratio 10.17 Ratio (12.00-20.00); Blood Urea Nitrogen 18.3 mg/dL (9.0-27.0); Calcium 9.6 mg/dL (8.7-10.3); Carbon Dioxide 25.5 mmol/L (21.6-31.8); Chloride 102 mmol/L (96-109); Globulin 2.2 d/dL (1.6-3.3); Glucose 89 mg/dL (70-110); Potassium 4.9 mmol/L (3.5-5.5); Sodium 139 mmol/L (135-145); Total Bilirubin 0.5 mg/dL (0.3-1.2); Total Protein 6.7 d/dL (6.2-8.2)
[2023-03-20 17:49] LABS: HCT 44.2 % (39.6-50.0); HGB 14.1 d/dL (13.0-17.0); MCH 28.8 pg (27.0-32.0); MCHC 31.9 d/dL (32.0-37.0); MCV 90.4 FL (80.0-97.0); Mean Platelet Volume 10.9 FL (9.5-12.2); NRBC Per 100 WBC 0 X 10*3/uL (0.00-0.01); Platelet Count 244 X 10*3/uL (140-440); RBC 4.89 X 10*6/uL (4.40-5.60); RDW 13.3 % (11.5-14.5); WBC 9.18 X 10*3/uL (4.50-10.00)
== END | disposition home or self-care (01) ==
LOC: LABWHC1 09:53
PROVIDERS: ATTEND Internal Medicine Cardiovascular Disease
DX: N18.9 Chronic kidney disease, unspecified (principal)
CPT/HCPCS: 36415; 80053; 85027

== ENCOUNTER → 2023-06-05 | Outpatient (CLI) | payer MEDICARE ==
[2023-06-05 14:46] LABS: Protein/Creatinine Ratio,Urine 0.13
[2023-06-05 21:49] LABS: Basophils # (A) 0.07 X 10*3/uL (0.00-0.10); Basophils % (A) 0.6 %; Eosinophils # (A) 0.41 X 10*3/uL (0.04-0.35); Eosinophils % (A) 3.5 %; HGB 14.3 g/dL (13.0-17.0); Lymphocytes # (A) 2.94 X 10*3/uL (0.90-5.00); Lymphocytes % (A) 25.2 %; MCH 29.3 pg (27.0-32.0); MCHC 32.5 g/dL (32.0-37.0); MCV 90.2 FL (80.0-97.0); Mean Platelet Volume 10.5 FL (9.5-12.2); Monocytes # (A) 0.98 X 10*3/uL (0.20-1.00); Monocytes % (A) 8.4 %; NRBC Per 100 WBC 0 X 10*3/uL (0.00-0.01); Neutrophils # (A) 7.22 X 10*3/uL (1.80-7.70); Neutrophils % (A) 61.9 %; Platelet Count 226 X 10*3/uL (140-440); RBC 4.88 X 10*6/uL (4.40-5.60); RDW 13.2 % (11.5-14.5); WBC 11.67 X 10*3/uL (4.50-10.00)
[2023-06-05 21:59] LABS: % Iron Saturation 30.97 (15.00-50.00); ALT 35 U/L (10-49); AST 30 U/L (14-35); Albumin 4.5 g/dL (3.8-4.9); Alkaline Phosphatase 88 U/L (41-126); BUN/Creat Ratio 10.94 Ratio (12.00-20.00); Blood Urea Nitrogen 19.7 mg/dL (9.0-27.0); Calcium 9.9 mg/dL (8.7-10.3); Carbon Dioxide 24.3 mmol/L (21.6-31.8); Chloride 100 mmol/L (96-109); Globulin 2.5 g/dL (1.6-3.3); Glucose 95 mg/dL (70-110); Iron 105 UG/DL (65-175); Magnesium 2.4 mg/dL (1.5-2.4); Phosphorus 3.9 mg/dL (2.4-5.1); Potassium 4.9 mmol/L (3.5-5.5); Sodium 137 mmol/L (135-145); Total Bilirubin 0.6 mg/dL (0.3-1.2); Total Iron Binding Capacity 339 UG/DL (228-460); Uric Acid 5.5 mg/dL (3.7-8.7); Urine Creatinine 97.3 mg/dL (39.0-259.0)
== END | disposition home or self-care (01) ==
LOC: LABWHC1 11:31
PROVIDERS: ATTEND Nurse Practitioner Acute Care
DX: N25.81 Secondary hyperparathyroidism of renal origin (principal); N18.4 Chronic kidney disease, stage 4 (severe); D63.1 Anemia in chronic kidney disease; N39.0 Urinary tract infection, site not specified; E55.9 Vitamin D deficiency, unspecified; M10.9 Gout, unspecified; R80.9 Proteinuria, unspecified
CPT/HCPCS: 36415; 80053; 82043; 82306; 82570; 82728; 83540; 83550; 83735; 83970; 84100; 84156; 84550; 85025

== ENCOUNTER → 2023-06-05 | Outpatient (CLI) | payer MEDICARE ==
[~2023-06-05] MED LIST: REGADENOSON 0.4 MG/5 ML SYRINGE IV ONE
--- NOTE | 2023-06-05 11:35 | CA ---
Lexiscan Nuclear Stress Test Report Name: Pipe Estrada Exam Date: 06/05/2023 10:29 Exam Location: [place] Stress Ht (in): 72 Wt (lb): 187 BSA: 2.07 Ordering Phys: Meliton Granados MD Referring Phys: Ailyn Negron [facility] Technologist: Prateek Washington Age: 87 Gender: M : 1935 Procedure CPT: Indications: Z01.818 ENCOUNTER FOR PREPROCEDURAL CARDIOVASCULAR ICD-10 Codes: Patient History: HTN, DM, CVA, CHOL Medications: LOSARTAN, CLOPIDOGREL, GLINEPIRIDE, AMLODIPINE, ATORVOSTATIN, TROLOCITY, TAMSULOSIN, TIMOLO MALEATE Meds past 24 hrs: Pretest Chest Pain: STRESS TEST Lexiscan Protocol Exercise Duration (min:sec): 02:[address] Depressions (mm): Angina Score: Licona Score: Resting HR (bpm): 67 Peak HR (bpm): 79 Resting BP (mmHg): 149 / 67 Peak BP (mmHg): 131 / 61 MPHR: 132 Target HR: 112 % MPHR: 60 METS: 1.0 Total Dose: Peak Dose: Atropine: Double Product: 53625 BP Response: Stress Termination: MAX DOSAGE REACHED Stress Symptoms: No chest pain or symptoms Stress Summary: ECG ANALYSIS Resting ECG: Sinus rhythm. Incomplete right bundle branch block. Ventricular premature contraction. Normal repolarization. Stress ECG: No ECG changes from baseline with Lexiscan infusion. CONCLUSIONS No ECG evidence of ischemia with Lexiscan infusion. Nuclear test results to follow. Dr. Purvi Angeles MD (Electronically Signed) Final Date: 05 June 2023 11:34
== END | disposition home or self-care (01) ==
LOC: RADNMMAIN 08:41
PROVIDERS: ATTEND Internal Medicine Cardiovascular Disease
DX: Z01.810 Encounter for preprocedural cardiovascular examination (principal); I10 Essential (primary) hypertension; R07.9 Chest pain, unspecified
CPT/HCPCS: 93017; 78452; A9500; J2785